=== PATIENT | female | born 1985 | race Two or more races ===

== ENCOUNTER 2017-05-13 13:01 | Emergency (ER) | payer OTHER ==
[~2017-05-13] VITALS: Ht 167.6 cm; Wt 52.2 kg
[~2017-05-13 13:01] MED LIST: PEPCID40 MG PO; PRENATAL CAPLE1 EACH PO
== END 2017-05-13 16:35 | disposition home or self-care (01) ==
LOC: ER 13:01
DX: S80.212A Abrasion, left knee, initial encounter (principal); S80.211A Abrasion, right knee, initial encounter; W18.39XA Other fall on same level, initial encounter; Y93.89 Activity, other specified; Y92.89 Other specified places as the place of occurrence of the external cause; Y99.8 Other external cause status

== ENCOUNTER 2018-09-25 17:17 | Outpatient (CLI) | payer OTHER | END 2018-09-25 18:00 | disposition home or self-care (01) | LOC: RAD 17:17 | DX: M54.5 Low back pain (principal); M54.6 Pain in thoracic spine ==

== ENCOUNTER 2025-01-08 09:46 | Outpatient (CLI) | payer OTHER | END 2025-01-08 09:55 | disposition home or self-care (01) | LOC: RAD 09:46 | DX: M99.03 Segmental and somatic dysfunction of lumbar region (principal); M99.04 Segmental and somatic dysfunction of sacral region; M99.05 Segmental and somatic dysfunction of pelvic region ==